=== PATIENT | female | born 1980 | race African-American/Black ===

== ENCOUNTER 2018-02-12 13:29 | Emergency (ER) | payer MEDICAID ==
[~2018-02-12] VITALS: Ht 165.1 cm; Wt 98.5 kg
[~2018-02-12 13:29] MED LIST: AMLODIPINE; METOPROLOL
[2018-02-12] MEDS ORDERED: OLANZAPINE 5MG TABLET ODT PO ONE (15:00)
[2018-02-12] MEDS ORDERED: VISCOUS LIDOCAINE 2% 15 ML UDC MM STA (15:29)
[2018-02-12 16:57] VITALS: BP 155/81
== END 2018-02-12 16:59 | disposition home or self-care (01) ==
LOC: ER 13:29
DX: F20.9 Schizophrenia, unspecified (principal); B37.2 Candidiasis of skin and nail; I10 Essential (primary) hypertension; F31.9 Bipolar disorder, unspecified; J45.909 Unspecified asthma, uncomplicated; F12.10 Cannabis abuse, uncomplicated; F17.200 Nicotine dependence, unspecified, uncomplicated; Z98.890 Other specified postprocedural states
CPT/HCPCS: 81025; 99284

== ENCOUNTER 2023-09-18 08:57 | Emergency (ER) | payer MEDICAID ==
[~2023-09-18] VITALS: Ht 170.2 cm; Wt 66.0 kg
[2023-09-18 09:01] VITALS: O2SAT 100
[2023-09-18] MEDS ORDERED: IBUP-2029 MT (09:21)
[2023-09-18] MEDS ORDERED: CEPH500T MT (09:21)
[2023-09-18 09:30] VITALS: BP 108/66; PULSE 80; RESP 18; TEMP 98.2
[2023-09-18] MEDS: IBUPROFEN 600MG TABLET PO ONE (09:38)
== END 2023-09-18 09:30 | disposition home or self-care (01) ==
LOC: ER 09:02
DX: S30.860A Insect bite (nonvenomous) of lower back and pelvis, initial encounter (principal); J45.909 Unspecified asthma, uncomplicated; F31.9 Bipolar disorder, unspecified; E78.00 Pure hypercholesterolemia, unspecified; I10 Essential (primary) hypertension; F20.9 Schizophrenia, unspecified; W57.XXXA Bitten or stung by nonvenomous insect and other nonvenomous arthropods, initial encounter; Y93.89 Activity, other specified; Y92.89 Other specified places as the place of occurrence of the external cause; Y99.8 Other external cause status
CPT/HCPCS: 99283

== ENCOUNTER 2023-11-18 15:27 | Emergency (ER) | payer MEDICAID ==
[~2023-11-18] VITALS: Ht 165.1 cm; Wt 78.0 kg
[~2023-11-18 15:27] MED LIST changes: +CEPH500T MT; +IBUP-2029 MT
[2023-11-18 15:42] VITALS: BP 147/108; PULSE 94; RESP 16; TEMP 98.3; O2SAT 100
[2023-11-18] MEDS ORDERED: ACETAMINOPHEN 325MG TABLET PO ONE (18:30)
[2023-11-18] MEDS ORDERED: LIDOCAINE HCL 1% 20ML VIAL INFIL ONE (18:30)
[2023-11-18] MEDS ORDERED: TETANUS, DIPHTHERIA, PERTUSSIS VAC/PF 0.5ML (>10YR OLD) IM ONE (18:30)
== END 2023-11-18 22:04 | disposition left against medical advice (07) ==
LOC: ER 15:27
DX: L02.413 Cutaneous abscess of right upper limb (principal); F12.10 Cannabis abuse, uncomplicated; I10 Essential (primary) hypertension; E78.00 Pure hypercholesterolemia, unspecified; J45.909 Unspecified asthma, uncomplicated; F31.9 Bipolar disorder, unspecified; Z98.890 Other specified postprocedural states; Z86.59 Personal history of other mental and behavioral disorders
CPT/HCPCS: 10060; 99284